=== PATIENT | male | born 1930 | race Caucasian/White ===

== ENCOUNTER 2018-09-06 08:05 | Day surgery (SDC) | payer MEDICARE ==
[2018-09-03 10:20] VITALS: BMI 27.1
[2018-09-06] MEDS ORDERED: Bacitracin Zinc Ointment 30 gm TUBE ONE (08:39)
[2018-09-06] MEDS ORDERED: Bupivacaine/Epinephrine 0.25% 30 ML VIAL ONE ×2 (08:39)
[2018-09-06] MEDS ORDERED: CEFAZOLIN 2 GM/50 ML BAG ONE (08:41)
[2018-09-06] MEDS ORDERED: Fentanyl 100 MCG/2 ML VIAL ONE (09:01)
[2018-09-06] MEDS ORDERED: Midazolam HCl 2 mg/2 ml Vial ONE (09:01)
[2018-09-06 09:45] LABS: Anion Gap 17 mmol/L (10-20); BUN (Urea Nitrogen) 13 mg/dL (8.4-25.7); Calc. Creatinine Clearance 59 mL/min (70-130); Carbon Dioxide 26 mmol/L (23-31); Chloride 102 mmol/L (98-107); Estimated GFR-MDRD 70; Glucose 209 mg/dL (83-110); Potassium 3.8 mmol/L (3.5-5.1); Sodium 141 mmol/L (136-145)
[2018-09-06] MEDS ORDERED: PROPOFOL 200 MG/20 ML VIAL ONE (15:04)
--- NOTE | 2018-09-08 14:35 | OP ---
DATE OF PROCEDURE: 09/06/2018 PREOPERATIVE DIAGNOSIS: Basal cell, left leg (C44.719). POSTOPERATIVE DIAGNOSIS: Basal cell, left leg (C44.719). PROCEDURES PERFORMED: 1. Wide excision of basal cell in left ankle (2.6 cm including adequate margins) (70259). 2. Full-thickness skin graft, left leg (6 cm sq) (86444). 3. Application of wound VAC (6 sq cm). DESCRIPTION OF PROCEDURE: Following induction of adequate anesthesia, the patient was prepped and draped in the usual sterile fashion in the supine position. The patient's left ankle skin cancer was widely excised with adequate margins. Frozen section analysis came back as margins clear. An ipsilateral groin full thickness skin graft was harvested. The donor defect was closed with 3-0 prolene. The graft was quilted into place with interrupted running 4-0 chromic suture. The wound VAC was then placed and secured the graft as well as enhance survival. All surgical king were copiously irrigated and inspected for meticulous hemostasis prior to closure. The patient tolerated the procedure well. Job ID: [id number]
--- NOTE | 2018-09-08 21:44 | EKG ---
Test Reason : PREOP Blood Pressure : / mmHG Vent. Rate : 079 BPM Atrial Rate : 079 BPM P-R Int : 188 ms QRS Dur : 102 ms QT Int : 390 ms P-R-T Axes : 083 -44 042 degrees QTc Int : 447 ms Normal sinus rhythm Left axis deviation Abnormal ECG When compared with ECG of 04-SEP-2016 16:03, No significant change was found Confirmed by Benton SEBASTIAN ([id number]) on 09/08/2018 9:44:13 PM Referred By: PUSHPA Confirmed By:Benton SEBASTIAN
== END 2018-09-06 17:08 | disposition home or self-care (01) ==
LOC: SDC 08:05
PROVIDERS: ATTEND Plastic Surgery
PROC: 0HRNX73 Replacement of Left Foot Skin with Autologous Tissue Substitute, Full Thickness, External Approach (ICD-10-PCS; principal; 2018-09-06)
DX: C44.719 Basal cell carcinoma of skin of left lower limb, including hip (principal); Z79.1 Long term (current) use of non-steroidal anti-inflammatories (NSAID); Z79.84 Long term (current) use of oral hypoglycemic drugs; Z79.899 Other long term (current) drug therapy
CPT/HCPCS: 80048; 88305; 88331; 88332; 93005; 93010; J2250; J2704; J3010